=== PATIENT | male | born 1945 ===

== ENCOUNTER 2017-06-17 11:45 | Emergency (ER) | payer SELFPAY ==
[2017-06-17 12:00] VITALS: BP 138/76; PULSE 78; RESP 18; TEMP 98; O2SAT 99
--- NOTE | 2017-06-17 12:32 | C.PDOC ---
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 Patient reports that he did not have any injuries at the time of accident and he is still working. Patient reports that he is taking Ibuprofen occasionally for the back discomfort. Patient denies any head injury and trauma. - HPI Time Seen by Provider: 06/17/17 12:22 Chief Complaint (Nursing): Trauma History Per: Patient History/Exam Limitations: no limitations Onset/Duration Of Symptoms: Days Severity: Moderate Past Medical History Reviewed: Historical Data, Nursing Documentation, Vital Signs Vital Signs: Last Vital Signs Temp 98.0 F 06/17/17 11:59 Pulse 78 06/17/17 11:59 Resp 18 06/17/17 11:59 BP 138/76 06/17/17 11:59 Pulse Ox 99 06/17/17 13:34 - Medical History PMH: Hypercholesterolemia Surgical History: No Surg Hx Family History: States: No Known Family Hx - Social History Hx Alcohol Use: No Hx Substance Use: No - Immunization History Hx Tetanus Toxoid Vaccination: No Hx Influenza Vaccination: No Hx Pneumococcal Vaccination: No Review Of Systems Except As Marked, All Systems Reviewed And Found Negative. Musculoskeletal: Positive for: Back Pain Neurological: Negative for: Weakness, Numbness Physical Exam - Physical Exam Appears: Non-toxic, No Acute Distress Skin: Normal Color, Warm Head: Atraumatic, Normacephalic Eye(s): bilateral: Normal Inspection, PERRL Nose: Normal Oral Mucosa: Moist Neck: Supple Chest: Symmetrical Cardiovascular: Rhythm Regular Respiratory: Normal Breath Sounds, No Accessory Muscle Use Back: Normal Inspection, Paraspinal Tenderness (paralumbar tenderness, mild tenderness in the trapezius) Extremity: Normal ROM Neurological/Psych: Oriented x3, Normal Speech, Normal Cognition, Normal Motor, Normal Sensation ED Course And Treatment O2 Sat by Pulse Oximetry: 99 (RA) Pulse Ox Interpretation: Normal Medical Decision Making 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 mild muscular strain/sprain thoracic and lumbar spine- no bony trauma, no head injury ice and nsaids educated. Occupational/Workman's Comp educated. Disposition Doctor Will See Patient In The: Office Counseled Patient/Family Regarding: Studies Performed, Diagnosis - Disposition Referrals: [facility] [Outside] [facility] [Outside] Disposition: HOME/ ROUTINE Disposition Time: 12:32 Condition: GOOD Additional Instructions: sigue ibuprofeno 400-600 mg cada 6 horas sameer necessario. [place] 1/2 hora por hora, nada caliente- bong johnie caliente Sigue con Concentra o' Workman's Comp de [place]ley impresa. Instructions: Muscle Strain (ED), Musculoskeletal Pain (ED) Forms: [email or web address] (H[place]er) Print Language: GREENLANDIC - Clinical Impression Clinical Impression: Muscle strain - Scribe Statement The provider has reviewed the documentation as recorded by the Scribe Terri Blanchard Provider Attestation: All medical record entries made by the Scribe were at my direction and personally dictated by me. I have reviewed the chart and agree that the record accurately reflects my personal performance of the history, physical exam, medical decision making, and the department course for this patient. I have also personally directed, reviewed, and agree with the discharge instructions and disposition.
== END 2017-06-17 12:53 | disposition home or self-care (01) ==
LOC: C.ER 11:45
DX: S29.012A Strain of muscle and tendon of back wall of thorax, initial encounter (principal); S39.012A Strain of muscle, fascia and tendon of lower back, initial encounter; X58.XXXA Exposure to other specified factors, initial encounter